=== PATIENT | male | born 2000 | race Caucasian/White ===

== ENCOUNTER → 2021-06-22 | Outpatient (CLI) | payer OTHER ==
[2021-06-22 18:07] LABS: Basophils # (A) 0.03 X 10*3/uL (0.00-0.10); Basophils % (A) 0.5 %; Eosinophils # (A) 0.09 X 10*3/uL (0.04-0.35); Eosinophils % (A) 1.4 %; HCT 46.1 % (39.6-50.0); HGB 15.7 g/dL (13.0-17.0); Immature Grans, Automated 0.2 %; Lymphocytes # (A) 2.58 X 10*3/uL (0.90-5.00); MCH 29.7 pg (27.0-32.0); MCHC 34.1 g/dL (32.0-37.0); MCV 87.1 fL (80.0-97.0); Mean Platelet Volume 9.6 fL (9.5-12.2); Monocytes # (A) 0.64 X 10*3/uL (0.20-1.00); Monocytes % (A) 9.7 %; NRBC Per 100 WBC 0 /100 WBCS (0.0-0.0); Neutrophils # (A) 3.27 X 10*3/uL (1.80-7.70); Neutrophils % (A) 49.2 %; Platelet Count 289 X 10*3/uL (140-440); RBC 5.29 X 10*6/uL (4.40-5.60); WBC 6.62 X 10*3/uL (4.50-10.00)
[2021-06-22 18:26] LABS: ALT 35 U/L (10-49); AST 25 U/L (14-35); African American GFR (CKD) 146.6 (60.0-200.0); Albumin/Globulin Ratio 1.99 (1.60-3.17); Alkaline Phosphatase 60 U/L (41-126); BUN/Creat Ratio 10.37 Ratio (12.00-20.00); Blood Urea Nitrogen 8.6 mg/dL (9.0-27.0); Carbon Dioxide 23.8 mmol/L (20.0-27.5); Chloride 100 mmol/L (96-109); Globulin 2.5 g/dL (1.6-3.3); Glucose 87 mg/dL (70-110); LDL Cholesterol,Calculated 115.1 mg/dL (0.0-131.0); Non-African American GFR(CKD) 126.5 (60.0-200.0); Potassium 3.9 mmol/L (3.5-5.5); Sodium 138 mmol/L (135-145); Total Protein 7.5 g/dL (6.2-8.2); VLDL Calculation 15.78 mg/dL (5.00-40.00)
== END | disposition home or self-care (01) ==
LOC: LABWHC1 11:16
PROVIDERS: ATTEND Internal Medicine
DX: Z00.00 Encounter for general adult medical examination without abnormal findings (principal)
CPT/HCPCS: 36415; 80053; 80061; 84443; 85025

== ENCOUNTER → 2021-08-30 | Day surgery (SDC) | payer OTHER ==
--- NOTE | 2021-08-28 13:17 | P.HPOR ---
History of Present Illness H&P Date: 08/28/21 Chief Complaint: Right volar wrist soft tissue mass Subjective: This is a 21 year old male that presents today for initial evaluation regarding a several month history of a right volar wrist mass that suddenly developed. He denies any injury or inciting event. He states it is not painful on a daily basis and does not interfere with the function of his hand. He denies any paresthesias. Physical Examination: RUE: AIN/PIN/Radial/Ulnar/Median motor intact. Radial/Ulnar/Median SILT. 2+/4 Radial/Ulnar pulses palpated. 5/5 APB, 5/5 FDI. Negative Finkelsteins, negative CMC grind, negative Durkan's compression. 4x3 cm mobile round mass on volar radial portion of wrist. No appreciable thrill or pulsation appreciated with mass. Imaging: X-Rays of the right hand demonstrate no acute fracture/dislocation. Slight irregular contour of nose of scaphoid at STT joint, likely chronic. Impression: 1.) Right volar wrist soft tissue mass. 4cm. Plan: Diagnosis and treatment options were discussed with the patient. The patient states that the mass is becoming increasingly annoying and he would like to have it excised. Risks and benefits of surgery including bleeding, infection, damage to surrounding tissue, need for further surgery, recurrence and risks of anesthesia were discussed and he wishes to proceed with surgical intervention and will be scheduled for right volar wrist soft tissue mass excision in the near future. -Calos Reyes DO Orthopedic Hand/Upper Extremity Surgeon Physical Examination Osteopathic Statement: *. No significant issues noted on an osteopathic structural exam other than those noted in the History and Physical/Consult.
[2021-08-28 15:15] VITALS: BMI 28.3
[~2021-08-30] MED LIST: BUPIVACAINE (PF) 0.5% 30 ML VIAL SQ ONE; DEXAMETHASONE SOD PHOSPHATE 4 MG/ML 1 ML VIAL IVP ONE; HYDROmorphone 0.5 MG/0.5 ML SYRINGE IVP ONE; KETOROLAC 15 MG/ML 1 ML VIAL ONE; LACTATED RINGERS 1,000 ML IV SCH; LIDOCAINE 1% INJ 10MG/ML (20 ML MDV) SQ ONE; LIDOCAINE 2% INJ 20 MG/ML (2 ML VIAL) ONE; MIDAZOLAM 2 MG/2 ML VIAL ONE; ONDANSETRON 4 MG/2 ML VIAL IVP ONE; ONDANSETRON 4 MG/2 ML VIAL ONE; PROPOFOL 10 MG/ML 20 ML VIAL IV ONE; fentaNYL (PF) 50 MCG/ML 2 ML AMP ONE
[2021-08-30 09:25] VITALS: TEMP 97.1
[2021-08-30 10:27] VITALS: BP 126/86; PULSE 71; RESP 18
--- NOTE | 2021-08-30 19:32 | P.OP ---
Date of Procedure: 08/30/21 Preoperative Diagnosis: Right volar wrist soft tissue mass 4x3cm Postoperative Diagnosis: Right volar wrist soft tissue mass 4x3cm Procedure(s) Performed: Right volar wrist soft tissue mass excision 4x3cm Anesthesia: MESHAA Surgeon: Calos Reyes Estimated Blood Loss (ml): 10 Pathology: other (Right wrist volar soft tissue mass) Condition: stable Disposition: PACU Description of Procedure: This is a 21 year old male who presents today for a right volar soft tissue mass excision after having failed conservative treatment. Risks and benefits of surgery were discussed with the patient including bleeding, damage to surrounding tissue, infection, need for further surgery, recurrence, as well as risks of anesthesia including pulmonary embolism and even and the patient wished to proceed with surgical intervention. The patient was seen in the pre- operative area by myself. Consent and H&P were completed and updated. The correct extremity was marked in the pre-operative area by myself and all other questions were answered. Operative Narrative: The patient was brought to the operating room by the department of anesthesia. They remained on the portable stretcher and a rolling hand table was brought to the side of the operative extremity. Pre-operative time out was performed indicating the correct patient, procedure and laterality. All in the room agreed. Pre-operative antibiotics were given prior to skin incision. The patient was then drifted off to sleep by the department of anesthesia. A nonsterile tourniquet was then applied to the operative extremity and the right upper extremity was then prepped and draped in normal sterile fashion. The operative extremity was the exsanguinated with an esmarch bandage and the tourniquet was inflated to 250mmHg. A longitudinal incision was made over the volar aspect of the wrist overlying the prominent soft tissue mass located on a volar radial portion of the wrist. Blunt dissection was taken down through subcutaneous tissues taking care to protect the radial artery and surrounding branches. After subcutaneous dissection was performed a 4x3cm multilobulated clear gelatinous mass was identified and encased intimately around the radial artery. The mass was carefully dissected out and direct communication of the stalk was followed down to the radiocarpal joint. A small portion of volar capsule was excised at the origin of the stalk. Bovie cautery was used to cauterize the origin of the stalk taking care to preserve the volar wrist ligaments. The mass was collected and sent to pathology. Tourniquet was then let down and no pulsatile bleeding was appreciated. Minor superficial venous bleeding was controlled with bovie cautery. Tourniquet was then re-inflated for closing. The wound was then closed with 4-0 Monocryl suture followed by mastisol and steri strips and 10cc's of 0.5 % bupivicaine was injected into the surgical area. A soft dressing consisting of 4x4s, cast padding and an naa wrap was applied. Tourniquet was let down and the digits had immediate normal perfusion. Renny QUINONES was present for the case in it's entirety to assist in retraction and protection of vital neurovascular structures. The patient was then transferred to PACU in stable condition. Calos Reyes D.O. Orthopedic Hand/Upper Extremity Surgeon
== END | disposition home or self-care (01) ==
LOC: OR 07:15
PROVIDERS: ATTEND Orthopaedic Surgery Hand Surgery
DX: M67.431 Ganglion, right wrist (principal)
CPT/HCPCS: 25071; 88304; J2250; J1100; J0690; J2405; J2001 ×2; J3010; J1885; J2704; J1170

== ENCOUNTER → 2022-07-12 | Outpatient (CLI) | payer OTHER ==
[2022-07-12 14:58] LABS: Basophils # (A) 0.03 X 10*3/uL (0.00-0.10); Basophils % (A) 0.4 %; Eosinophils % (A) 1.3 %; HCT 47.6 % (39.6-50.0); HGB 16.1 g/dL (13.0-17.0); Immature Grans, Automated 0.1 %; Lymphocytes # (A) 3.12 X 10*3/uL (0.90-5.00); Lymphocytes % (A) 41.5 %; MCH 29.5 pg (27.0-32.0); MCHC 33.8 g/dL (32.0-37.0); MCV 87.3 fL (80.0-97.0); Mean Platelet Volume 9.8 fL (9.5-12.2); Monocytes # (A) 0.66 X 10*3/uL (0.20-1.00); Monocytes % (A) 8.8 %; NRBC Per 100 WBC 0 /100 WBCS (0.0-0.0); Neutrophils # (A) 3.59 X 10*3/uL (1.80-7.70); Neutrophils % (A) 47.9 %; Platelet Count 275 X 10*3/uL (140-440); RBC 5.45 X 10*6/uL (4.40-5.60); RDW 12.4 % (11.5-14.5); WBC 7.51 X 10*3/uL (4.50-10.00)
[2022-07-12 15:57] LABS: ALT 31 U/L (10-49); AST 24 U/L (14-35); Albumin 5.2 g/dL (3.8-4.9); Albumin/Globulin Ratio 2.29 (1.60-3.17); Alkaline Phosphatase 70 U/L (41-126); BUN/Creat Ratio 13.57 Ratio (12.00-20.00); Blood Urea Nitrogen 11.6 mg/dL (9.0-27.0); Calcium 10.2 mg/dL (8.7-10.3); Carbon Dioxide 27.7 mmol/L (20.0-27.5); Chloride 102 mmol/L (96-109); Globulin 2.3 g/dL (1.6-3.3); Glucose 83 mg/dL (70-110); Non-African American GFR(CKD) 124.3 (60.0-200.0); Potassium 4.3 mmol/L (3.5-5.5); Sodium 142 mmol/L (135-145); Total Protein 7.4 g/dL (6.2-8.2); VLDL Calculation 13.96 mg/dL (5.00-40.00)
== END | disposition home or self-care (01) ==
LOC: LABWHC1 10:23
PROVIDERS: ATTEND Internal Medicine
DX: Z00.00 Encounter for general adult medical examination without abnormal findings (principal)
CPT/HCPCS: 36415; 80053; 80061; 84443; 85025; 86803